=== PATIENT | female | born 1940 | race Caucasian/White ===

== ENCOUNTER 2016-11-06 11:55 | Outpatient (CLI) | payer MEDICARE, BC ==
--- NOTE | 2016-11-06 15:19 | XRAY Report ---
TWO-VIEW CHEST: 11/06/2016 CLINICAL INDICATION: Cough, chest pain. FINDINGS: Frontal and lateral views of the chest demonstrate a normal cardiac silhouette. The lungs are hyperinflated, but clear. No effusion or pneumothorax is present. IMPRESSION: HYPERINFLATION, SUGGESTIVE OF COPD. NO EVIDENCE OF ACUTE CARDIOPULMONARY DISEASE. JOB #: [id number] EXT JOB #:[id number]
== END 2016-11-06 11:56 | disposition home or self-care (01) ==
LOC: DI.S 11:55
PROVIDERS: ATTEND Nurse Practitioner Family
DX: R07.9 Chest pain, unspecified (principal); R05 Cough
CPT/HCPCS: 71020